=== PATIENT | female | born 1960 | race Caucasian/White ===

== ENCOUNTER 2019-10-27 14:31 | Emergency (ER) | payer OTHER, SELFPAY ==
--- NOTE | ~2019-10-27 | XR_ITS ---
EXAMINATION: XR chest 2V 10/27/2019 14:44 INDICATION: Shortness of breath. Chest heaviness. PROCEDURE: 2 view chest COMPARISON: 10/19/2011 FINDINGS: The lungs are clear. The cardiomediastinal silhouette is within normal limits. There are no pleural effusions. There is no pneumothorax suspected. IMPRESSION: 1: NO ACUTE CARDIOPULMONARY DISEASE. Reviewed, dictated and finalized at location A.
--- NOTE | 2019-10-27 14:33 | ECG_ITS ---
Measurements Intervals [place] Rate: 84 P: 22 LA: 146 QRS: -27 QRSD: 146 T: 107 QT: 380 QTc: 450 Interpretive Statements SINUS RHYTHM LEFT BUNDLE BRANCH BLOCK BASELINE ARTIFACT- I, II, III, AVL, AVF ABNORMAL ECG Electronically Signed On 10-27-2019 15:27:05 CDT by Elmer Gamboa D.O.
--- NOTE | 2019-10-27 14:35 | ED.CHESTPAIN ---
HPI - Chest Pain General Chief Complaint: Chest Pain Stated Complaint: chest heaviness x 1.5 wks Time Seen by Provider: 10/27/19 14:35 History of Present Illness HPI narrative: 59 yo female w/ h/o HTn, LBBB Intermittent chest pain for about the past 10 days. Feels like presusre. No radiation. Not exertional. No SOB, diaphoresis. Related Data Home Medications Medication Instructions Recorded Confirmed thyroid (pork) [[place] Thyroid] 10/27/19 Allergies Allergy/AdvReac Type Severity Reaction Status Date / Time No Known Allergies Allergy Verified 10/27/19 14:40 Review of Systems Review of Systems: All systems reviewed & are unremarkable except as noted in HPI and below Constitutional: Constitutional: Denies chills and Denies fever(s) Cardiovascular: Cardiovascular: Reports chest pain and Denies radiating jaw, neck or arm pain Respiratory: Respiratory: Denies cough and Denies dyspnea PMF Past Medical History Medical History (Updated 11/05/19 @ 15:54 by Danielito Hall MD) HTN (hypertension) LBBB (left bundle branch block) Social History Social History Smoking status: Never smoker Alcohol intake: current Exam Const: General: healthy appearing, no acute distress and alert Orientation/consciousness: patient oriented x3 HENMT: Head: normal to inspection Neck: Neck: normal visual inspection and no lymphadenopathy Chest: Chest palpation & inspection: no tenderness Resp: Effort & Inspection: normal respiratory effort Auscultation: clear to auscultation bilaterally, no rales, no rhonchi and no wheezes Cardio: Jugular venous distension: no JVD Rate: regular rate Rhythm: regular rhythm Heart sounds: no murmurs GI: Inspection: non-distended GI Palp: Yes Soft to palpation and No Tenderness to palpation present (GI) Skin: General skin exam: normal color Neuro: General: patient oriented x3 and moves all extremities Speech: normal speech Extrem: General: no edema Psych: Appearance: well kempt Affect: normal affect Course Vital Signs Vital signs: Vital Signs Temperature 36.4 C 10/27/19 14:37 Pulse Rate 89 10/27/19 14:37 Respiratory Rate 16 10/27/19 14:37 Blood Pressure 165/107 H 10/27/19 14:37 Pulse Oximetry 96 10/27/19 14:37 Temperature 36.8 C 10/27/19 17:28 Pulse Rate 93 10/27/19 17:28 Respiratory Rate 16 10/27/19 17:28 Blood Pressure 148/90 H 10/27/19 17:28 Pulse Oximetry 99 10/27/19 17:28 MDM - Chest Pain Medical Records Data Attestation: I reviewed the patient's medical records. Lab Data Attestation: I reviewed the patient's lab results. Result diagrams: 10/27/19 14:42 10/27/19 14:42 Labs: Lab Results 10/27/19 10/27/19 10/27/19 Range/Units 14:42 14:42 14:42 WBC 11.1 H (4.5-10.0) K/mm3 RBC 4.47 (4.2-5.4) M/mm3 Hgb 14.6 (12.0-15.0) g/dL Hct 42.3 (37.0-47.0) % MCV 94.6 (80-100) fl MCH 32.7 (26-34) pg MCHC 34.5 (32-36) g/dl RDW 11.9 (11.5-14.5) % Plt Count 290 (150-375) k/mm3 MPV 9.8 (7.4-10.4) fl Immature Gran % (Auto) 0.2 (0-0.5) % Neut % (Auto) 60.1 (45.5-73.1) % Lymph % (Auto) 30.3 (18.3-44.2) % [place] % (Auto) 7.8 (2.6-8.5) % Eos % (Auto) 1.1 (0-4.4) % Baso % (Auto) 0.5 (0.2-1.2) % Lymph # (Auto) 3.35 H (0.9-3.2) K/mm3 [place] # (Auto) 0.9 H (0.1-0.6) K/mm3 Eos # (Auto) 0.1 (0-0.3) K/mm3 Baso # (Auto) 0.1 (0.0-0.1) K/mm3 Abs Immat Gran (auto) 0.02 (0.00-0.031) K/mm3 Absolute Neuts (auto) 6.7 (1.3-6.7) K/mm3 Absolute Nucleated RBC 0.0 (0.0-0.012) K/mm3 Nucleated RBC % 0.0 (0.0-0.2) % PT 12.9 (11.1-14.7) Seconds INR 1.0 APTT 25.4 (22.3-36.8) SECONDS Sodium 136 L (137-145) mmol/L Potassium 4.0 (3.4-5.0) mmol/L Chloride 106 (98-107) mmol/L Carbon Dioxide 22 (22-30) mmol/L BUN 21 H (7-1
[2019-10-27 14:37] VITALS: BP 165/107; PULSE 89; RESP 16; TEMP 36.4; O2SAT 96
[2019-10-27 14:43] VITALS: PULSE 87
[2019-10-27 14:47] LABS: Basophils Absolute Auto 0.1 K/mm3 (0.0-0.1); Basophils Percent Auto 0.5 % (0.2-1.2); Eosinophils Absolute Auto 0.1 K/mm3 (0-0.3); Eosinophils Percent Auto 1.1 % (0-4.4); Hematocrit 42.3 % (37.0-47.0); Hemoglobin 14.6 g/dL (12.0-15.0); Immature Granulocyte Absolute 0.02 K/mm3 (0.00-0.031); Immature Granulocyte Percent A 0.2 % (0-0.5); Lymphocytes Absolute Auto 3.35 K/mm3 (0.9-3.2); Lymphocytes Percent Auto 30.3 % (18.3-44.2); Mean Corpuscular HGB Conc 34.5 g/dl (32-36); Mean Corpuscular Hemoglobin 32.7 pg (26-34); Mean Corpuscular Volume 94.6 fl (80-100); Mean Platelet Volume 9.8 fl (7.4-10.4); Monocytes Absolute Auto 0.9 K/mm3 (0.1-0.6); Monocytes Percent Auto 7.8 % (2.6-8.5); Neutrophils Absolute Auto 6.7 K/mm3 (1.3-6.7); Neutrophils Percent Auto 60.1 % (45.5-73.1); Platelet Count Result 290 k/mm3 (150-375); Red Blood Count 4.47 M/mm3 (4.2-5.4); Red Cell Distribution Width 11.9 % (11.5-14.5); White Blood Count 11.1 K/mm3 (4.5-10.0)
[2019-10-27 14:55] LABS: Prothrombin Time 12.9 Seconds (11.1-14.7)
[2019-10-27 14:56] LABS: Partial Thromboplastin Time 25.4 SECONDS (22.3-36.8)
[2019-10-27 14:57] LABS: Blood Urea Nitrogen 21 mg/dL (7-17); Calcium 9.2 mg/dL (8.4-10.2); Carbon Dioxide 22 mmol/L (22-30); Chloride 106 mmol/L (98-107); Estimated CRCL calculation 81 ml/min; Estimated Glomerular Filt Rate > 60; Glucose 83 mg/dL (65-105); Sodium 136 mmol/L (137-145)
[2019-10-27 15:09] LABS: Troponin I < 0.012 ng/mL (0.000-0.034)
[2019-10-27 15:55] VITALS: BP 147/83; PULSE 83; RESP 16; O2SAT 99
[2019-10-27 17:28] VITALS: BP 148/90; PULSE 93; RESP 16; TEMP 36.8; O2SAT 99
== END 2019-10-27 17:49 | disposition home or self-care (01) ==
PROVIDERS: Emergency Provider Emergency Medicine; PCP Family Medicine
DX: R07.9 Chest pain, unspecified (principal); I10 Essential (primary) hypertension; I44.7 Left bundle-branch block, unspecified
CPT/HCPCS: 36415; 71046; 80048; 84484; 85025; 85610; 85730; 93005; 99284

== ENCOUNTER 2021-08-20 08:55 | Outpatient (CLI) | payer OTHER, SELFPAY ==
--- NOTE | ~2021-08-20 | US_ITS ---
EXAMINATION: US venous doppler [facility] DATE: 08/20/2021 10:04 INDICATION: Palpable lump at the left lower limb TECHNIQUE: Grayscale ultrasound images without and with compression and Doppler ultrasound images of the left lower extremity veins were obtained. COMPARISON: None. FINDINGS: The visualized portions of left common femoral vein, profunda (deep) femoral vein, femoral vein, popl iteal vein, peroneal veins, posterior tibial veins, gastrocnemius vein and greater saphenous vein out flow are patent. There is approximately 8.4 x 1.2 x 2.7 cm multiloculated cystic fluid collection ext ending along the superficial margin of the musculature at the medial proximal left calf. Multiple thi n internal septations without evident internal vascular flow or surrounding hyperemia on color Dopple r. IMPRESSION: 1. No deep venous thrombosis in the left lower limb. 2. 8.4 x 1.2 x 2.7 cm multiloculated cystic fluid collection at the proximal medial left calf which c ould represent either a large Anderson's cyst with internal synovitis or an organizing hematoma. Reviewed, dictated and finalized at location A. IMPRESSION: 1. No deep venous thrombosis in the left lower limb. 2. 8.4 x 1.2 x 2.7 cm multiloculated cystic fluid collection at the proximal me dial left calf which could represent either a large Anderson's cyst with internal synovitis or an organizing hematoma.
== END 2021-08-20 08:56 | disposition home or self-care (01) ==
LOC: ANHIMG 09:00
PROVIDERS: PCP Registered Nurse; Visit Provider Orthopaedic Surgery
DX: I82.409 Acute embolism and thrombosis of unspecified deep veins of unspecified lower extremity (principal); M79.89 Other specified soft tissue disorders
CPT/HCPCS: 93971

== ENCOUNTER 2022-04-19 10:46 | Outpatient (NON) | payer OTHER, SELFPAY | END 2022-04-19 10:47 | disposition home or self-care (01) | PROVIDERS: PCP Registered Nurse; Visit Provider Nurse Practitioner | DX: L72.0 Epidermal cyst (principal) | CPT/HCPCS: 88304 ==

== ENCOUNTER → 2022-05-27 15:11 | Outpatient (CLI) | payer OTHER, SELFPAY ==
--- NOTE | ~2022-05-27 | MM_ITS ---
EXAMINATION: MM scrn cesar implant BI w salud HISTORY: Screening mammogram TECHNIQUE: Craniocaudal and mediolateral oblique 3-D tomosynthesis images with implant displacement a nd synthetic 2-D images were generated. Craniocaudal and mediolateral oblique views of the breasts wi thout implant displacement were obtained using full field digital mammography. CAD analysis was submi tted and interpreted. COMPARISON: 02/16/2018 bilateral screening mammogram BREAST PARENCHYMAL COMPOSITION: There are scattered areas of fibroglandular density. FINDINGS: There is no evidence of suspicious mass, calcification, or architectural distortion to sugg est malignancy in either breast. There has been no suspicious interval change. IMPRESSION: 1. No mammographic evidence of malignancy. 2. Recommend routine screening mammography in one year. BI-RADS Category 1: Negative Reviewed, dictated and finalized at location A. 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
== END ==
PROVIDERS: PCP Registered Nurse; Visit Provider Registered Nurse
DX: Z12.31 Encounter for screening mammogram for malignant neoplasm of breast (principal)
CPT/HCPCS: 77063; 77067

== ENCOUNTER 2024-11-15 14:43 | Outpatient (CLI) | payer MEDICARE, SELFPAY ==
--- NOTE | ~2024-11-15 | MM_ITS ---
EXAMINATION: MM scrn cesar implant BI w salud HISTORY: Screening mammogram TECHNIQUE: Craniocaudal and mediolateral oblique 3-D tomosynthesis images with implant displacement a nd synthetic 2-D images were generated. Craniocaudal and mediolateral oblique views of the breasts wi thout implant displacement were obtained using full field digital mammography. CAD analysis was submi tted and interpreted. COMPARISON: Comparison to multiple prior studies sequentially, with oldest reviewed study dated 02/16. BREAST PARENCHYMAL COMPOSITION: Dense: The breasts are heterogeneously dense, which may obscure small masses FINDINGS: There is no evidence of suspicious mass, calcification, or architectural distortion to sugg est malignancy in either breast. There has been no suspicious interval change. IMPRESSION: 1. No mammographic evidence of malignancy. 2. Recommend routine screening mammography in one year. BI-RADS Category 1: Negative Reviewed, dictated and finalized at location A.
== END 2024-11-15 14:44 | disposition home or self-care (01) ==
LOC: MICIMG 14:45
PROVIDERS: PCP Obstetrics & Gynecology; Visit Provider Registered Nurse
DX: Z12.31 Encounter for screening mammogram for malignant neoplasm of breast (principal)
CPT/HCPCS: 77063; 77067

== ENCOUNTER 2025-02-26 08:03 | Outpatient (CLI) | payer MEDICARE, SELFPAY ==
--- OUTSIDE RECORDS SUMMARY | 2025-02-26 08:17 | XMS_ITS | Clinical Summary ---
Author Organization [facility] al Address [address] [place] [address] Care Team Providers Care Venereal Disease Investigator Name Role Phone Jelena Vega Primary Care Provider + Allergies No known active allergies Medications [place] Thyroid 60 mg tablet TK 3 TS PO QAM ON AN EMPTY STOMACH 10/09/2019 Active lisinopriL (PRINIVIL,ZESTR [place]) 20 mg tabletIndicatio ns:hypertension Take 2 tablets (40 mg total) by mouth daily Active Active Problems Problem Noted Date Diagnosed Date Encounter for screening colonoscopy 09/12/2023 Mixed hyperlipidemia 11/11/2021 Palpitations 11/21/2020 Other chest pain 12/17/2019 Elevated blood pressure reading 11/01/2019 Hypothyroidism 12/12/2013 Overview (09/02/2016): Hypothyroidism Left bundle branch block (LBBB) 12/12/2013 Overview (09/03/2016): LBBB (left bundle branch block) 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 Never 10/10/2023 Q2: How many drinks containi ng alcohol do you have on a typical day when you are drinking? Patient does not drink Q3: How often do you have si x or more drinks on one occasion? Never 10/10/2023 Personal Safety Answer Date Recorded Have you ever been in or are you currently in a harmful physical or emotional relationship or is someone making you feel afraid or unsafe? 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 Gender Identity Female 11/21/2020 8:58 AM CDT Sexual Orientation Straight 11/21/2020 8: 58 AM CDT Obstetrics History Last Filed Vital Signs Vital Sign Reading Time Taken Comments Blood Pressure 124/71 10/10/2023 10:45 AM CDT Pulse 79 10/10/2023 10:45 AM CDT Temperature 36.2 C (97.2 F) 10/10/2023 10:35 AM CDT Respiratory Rate 18 10/10/2023 10:45 AM CDT Oxygen Saturation 97% 10/10/2023 10:45 AM CDT Inhaled Oxygen Concentration - - Weight 67.6 kg (149 lb) 11/11/2021 8:05 AM CDT Height 170.2 cm (5' 7) 11/11/2021 8:05 AM CDT Body Mass Index 23.34 11/11/2021 8:05 AM CDT Plan of Treatment Health Maintenance Due Date Last Done Comments Breast Cancer Screening-Mammogram 1960 Depression Screening 1960 Fall Risk Assessment 1960 Hepatitis C Screening 1960 Osteoporosis Screening-Bone Density Scan 1960 DTaP/Tdap/Td Vaccine (1 - Tdap) 1969 Hepatitis B Screening 1976 Pneumococcal vaccine 65+ (2 of 2 - PCV) 12/31/2020 01/01/2020 Well Visit 65+ 2023 Influenza Vaccine (#1) 2025 2, 03/07/2021, 02/07/2020, Additional history exists Colon Cancer Screening-Colonoscopy 10/09/2033 10/10/2023, 08/09/2016 Zoster Vaccine Completed 03/21/2021, 01/10/2021 Colon Cancer Screening-CT Colonography Discontinued 10/10/2023, 08/09/2016 Colon Cancer Screening-DNA Stool Discontinued 10/10/19 24, 08/09/2016 Colon Cancer Screening-FIT Discontinued 10/10/2023, Colon Cancer Screening-Sigmoidoscopy Discontinued 10/10/2023, 08/09/2016 Procedures Procedure Name Priority Date/Time Associated Diagnosis Comments COLONOSCOPY 10/10/2023 9:56 AM CDT from Last 3 Months or Most Recently Relevant to Health Maintenance Results * Colonoscopy (10/10/2023 9:56 AM CDT) Anatomical Region Laterality Modality Other Narrative Procedure Note Robert Fox MD - 10/10/2023 9:56 AM CDT [facility] Patient Name: Stacia Caldera Procedure Date: 10/10/2023 9:56 AM Date of : 1960 Admit Type: Outpatient Age: 63 Gender: Female Attending MD: Robert Fox M.D. Room: [facility] ENDOSCOPY ROOM 02 Note Status: Finalized Procedure: Colonoscopy Indications: Personal history of colonic polyps Referring MD: Self Referral Providers: Robert Fox M.D. Medicines: Propofol per Anesthesia Complications: No immediate complications. Estimated Blood Loss: Estimated blood loss: none. Procedure: Pre-Anesthesia Assessment: - After reviewing the risks and benefits, thepatient was deemed in satisfactory condition to undergo the procedure. - Immediately prior to administration ofmedications, the patient was re-assessed for adequacy to receive sedatives. The benefits, risks and alternatives of theprocedure and sedation were discussed and informed consentwas obtained. All questions were answered. Please referto the signed informed consent document in the medical record. The scope was passed under direct vision.The [id number] was introduced through the anusand advanced to the the cecum, identified byappendiceal orifice and ileocecal valve. The colonoscopy was performed without difficulty. The patient tolerated the procedure well. The quality of the bowel preparation was good. The bowel preparation usedwas SUPREP. Findings: The perianal and digital rectal examinations were normal. The colon (entire examined portion) appeared normal. Impression: - The entire examined colon is normal. - No specimens collected. Recommendation: - Repeat colonoscopy in 5 years for surveillance. Electronically signed by Ho Fox Robert Fox M.D. 10/10/2023 10:37:19 AM Number of Addenda: 0 Note Initiated On: 10/10/2023 9:56 AM Recognized by the [place] for promoting quality in endoscopy Robert Fox MD ENDOSCOPY PROCEDURES Final Res ult from Last 3 Months or Most Recently Relevant to Health Maintenance Insurance AETNA [facility] HMO AETNA MEDICARE AET MEDICARE Advance Directives For more information, please contact: [phone] * Full Code (Latest Code Status on File) Date Activated Date Inactivated Comments 10/10/2023 9:15 AM 10/10/2023 3:17 PM Care Teams Venereal Disease Investigator Relationship Specialty Start Date End Date Jelena Vega PA [address] [place] [id number] PCP - General Nurse Practitioner 11/21/20
--- OUTSIDE RECORDS SUMMARY | 2025-02-26 08:17 | XMS_ITS | Clinical Summary ---
Author Organization 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 Gender Identity Not on file Sexual Orientation Not on file Plan of Treatment Health Maintenance Due Date Last Done Comments Hepatitis C Virus (HCV) Screening 1960 TdaP Immunization 1960 Cologuard 2003 Colonoscopy 2003 Colorectal Cancer Screening 2003 Immunochemical Fecal Occult Blood 2003 Zoster Immunization (1 of 2) 2008 Pneumococcal Immunization (5 0+ years) (2 of 2 - PCV) 12/31/2020 01/01/2020 Influenza Immunization (#1) 01/28/202501/28, 03/06/2019 SARS-COV-2 Immunization ( - 2023-25 season) 2025 Respiratory Syncytial Virus (RSV) Immunization (Adult) (1 - 1-dose 75+ series) 2033 Pneumococcal Immunization Combined Discontinued 01/01/2020 Hepatitis B Immunization Aged Out No longer eligible based on patient's age to complete this topic Human Papillomavirus (HPV) Immunization Aged Out No longer eligible based on patient's age to complete this topic Meningococcal Immunization (ACWY) Aged Out No longer eligible based on patient's age to complete this topic Rotavirus Immunization Aged Out No lo nger eligible based on patient's age to complete this topic Insurance [employer] on file
--- NOTE | 2025-02-26 17:22 | WPDPFTINT ---
PFT Procedure Performed PFT Procedure Performed Spirometry with Pre/Post Bronchodilator Plethysmography (Lung Vol) Diffusing Cap (DLCO) Flow Vol Loop PFT Interpretation This is a pulmonary function test with pre and post-bronchodilator spirometry, plethysmography and diffusing capacity. The test was performed and results interpreted in accordance with the 2019 and 2005 ATS/ERS Task Force guidelines respectively using the Global Lung Function Initiative-2012 reference equations. Patient demonstrated good effort and cooperation. Reproducibility criteria were met. The quality of the pre bronchodilator spirometry maneuver was Grade A and post bronchodilator spirometry maneuver was Grade A. Findings: Spirometry: The contour the inspiratory and expiratory flow tracing are normal. The pre bronchodilator FVC is 2.82 L, 88% predicted. The pre bronchodilator FEV1 is 2.06 L, 83% predicted. The pre bronchodilator FEV1: FVC ratio 73%. The post bronchodilator FVC is 2.79 L, representing 1% decrease. The post bronchodilator FEV1 is 2.15 L, representing a 4% increase. The post bronchodilator FEV1: FVC ratio 77%. Plethysmography: The total lung capacity is 5.13 L, 96% predicted. The functional residual capacity is 2.88 L, 94% predicted. The residual volume is 2.13 L, 96% predicted. Diffusing capacity: The diffusing capacity unadjusted for hemoglobin and carboxyhemoglobin is 15.7, 72% predicted. The diffusing capacity adjusted for alveolar volume is 3.76, 88% predicted. Impression: The spirometry is normal without evidence of an obstructive abnormality. There is no significant improvement after inhaling a single dose of albuterol. The lung volumes are normal. The diffusing capacity is normal. There are no prior studies for comparison
== END 2025-02-26 08:04 | disposition home or self-care (01) ==
PROVIDERS: PCP Registered Nurse; Visit Provider Allergy & Immunology
DX: J45.30 Mild persistent asthma, uncomplicated (principal)
CPT/HCPCS: 94060; 94726; 94729